=== PATIENT | female | born 1990 | race Caucasian/White ===

== ENCOUNTER 2018-05-31 13:03 | Emergency (ER) | payer SELFPAY ==
[2018-05-31 13:17] VITALS: BP 104/58; PULSE 58; RESP 16; TEMP 98.3; O2SAT 99
[2018-05-31] MEDS ORDERED: PROPARACAINE/FLUORESCEIN SOD 100 DROP/5 ML BOTTLE OD STA (13:46)
--- NOTE | 2018-05-31 14:11 | ED PDOC ---
HPI: Eye Injury/Pain Time Seen by Provider: 05/31/18 13:18 Chief Complaint (Nursing): Eye Problem Chief Complaint (Provider): Right Eye Problem History Per: Patient History/Exam Limitations: no limitations Onset/Duration Of Symptoms: Days (x2) Current Symptoms Are (Timing): Still Present Quality: Burning Wears Contact Lens?: Yes Associated Symptoms: Pain, Other (tearing). denies: FB Sensation, Discharge From Eye Additional Complaint(s): Patient is a 28 y/o female who presents to the ED for evaluation of right eye discomfort ongoing for the past two days. Patient reports her symptoms began after she took out her contacts, which she had in for a week. Patient admits to photophobia, increasing tearing, and redness to the affected eye. 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 Patient denies visual change, trauma to eye, foreign body sensation, eye mucous discharge, crusting, fever, URI, headache, dizziness, and vomiting. In addition, patient reports her last period was three weeks ago. No other complaints. PCP: None Provided Past Medical History Reviewed: Historical Data, Nursing Documentation, Vital Signs Vital Signs: Last Vital Signs Temp 98.3 F 05/31/18 13:15 Pulse 58 L 05/31/18 13:15 Resp 16 05/31/18 13:15 BP 104/58 L 05/31/18 13:15 Pulse Ox 99 05/31/18 13:15 - Medical History Other PMH: pelvis fracture as child; left elbow fracture - Surgical History Other surgeries: ORIF of left elbow - Family History Family History: States: No Known Family Hx - Home Medications Home Medications: Ambulatory Orders Medication Instructions Recorded Acetaminophen/Oxycodone Hydr 1 tab PO Q6 PRN #18 tab 03/03/14 [Percocet 325 mg-5 mg] Cyclobenzaprine HCl [Flexeril] 10 mg PO BID PRN #20 tab 03/03/14 RX: Tobramycin 0.3% [Tobrex 0.3% 1 drop OD Q6 #1 bottle 05/31/18 Ophth Chivo] - Allergies Allergies/Adverse Reactions: Allergies Allergy/AdvReac Type Severity Reaction Status Date / Time No Known Allergies Allergy Verified 05/31/18 13:14 Review of Systems ROS Statement: Except As Marked, All Systems Reviewed And Found Negative Constitutional: Negative for: Fever Eyes: Positive for: Pain (right eye discomfort; photophobia and increased tearing), Redness. Negative for: Vision Change, Other (eye mucous discharge and crusting) Gastrointestinal: Negative for: Vomiting Neurological: Negative for: Headache, Dizziness Physical Exam - Reviewed Nursing Documentation Reviewed: Yes Vital Signs Reviewed: Yes - Physical Exam Comments: GENERAL APPEARANCE: Patient is awake, alert, oriented x 3; uncomfortable appearing. HEENT: (-) facial swelling and erythema, (-) facial blisters (-) periorbital edema, erythema or tenderness. VISUAL ACUITIES: cannot be obtained because patient did not bring glasses to ED. LIDS & LASHES: Normal. (-) crusting (+) excessive tearing to right eye. PUPILS: Pupils are equal, round, and reactive. EOMI's: Intact and painless. CONJUNCTIVAE: (+) diffuse conjunctival injection of right eye. ANTERIOR CHAMBER: (-) foreign body, (-) hyphema. FLUORESCEIN: (+) 3 mm by 3 mm circular area of uptake overlying the pupil CHEST AND RESPIRATORY: (-) rales, (-) rhonchi, (-) wheezes; breath sounds equal bilaterally. Respirations even and nonlabored. HEART AND CARDIOVASCULAR: (-) irregularity - ECG O2 Sat by Pulse Oximetry: 99 (RA) Pulse Ox Interpretation: Normal Medical Decision Making Medical Decision Making: Time: 1330 Impression: Eye irritation; Conjunctivitis vs corneal ulcer vs uveitis Plan: Flucaine Eye Drops (1 drop OD) Nursing Communication - Visual acuity Re-evaluation Time: 1410 In light of fluorescein test, Tobramycin ophthalmic solution ordered. Consult with Opticianry Teacher placed due to high suspicion for corneal ulcer. Time: 1435 Case discussed with ophtho precision layout worker, Dr William. Dr William states to send patient to his office immediately for further evaluation. Patient made aware of consult with Dr William and is agreeable to plan. Patient demonstrates understanding of physical exam findings and need for immediate ophtho evaluation. Vitals stable. Lab/Diagnostic results d/w the patient in great detail. Diagnosis of corneal u lcer, right eye irritation d/w the patient. Based on history, exam and diagnostic results, plan will be for outpatient follow up with ophtho (Dr William) immediately upon discharge. Advised to take medication as prescribed. Return to the emergency room at any time for any new or worsening symptoms. Patient states she fully agrees with and understands discharge instructions. States that she agrees with the plan and disposition. Verbalized and repeated discharge instructions and plan. I have given the patient opportunity to ask any additional questions. Scribe Attestation: Documented by Kaushik Mccray, acting as a scribe for SILVESTRE Smith. Provider Scribe Attestation: All medical record entries made by the Scribe were at my direction and personally dictated by me. I have reviewed the chart and agree that the record accurately reflects my personal performance of the history, physical exam, medical decision making, and the department course for this patient. I have also personally directed, reviewed, and agree with the discharge instructions and disposition. Disposition - Clinical Impression Clinical Impression: Corneal ulcer of right eye, Eye infection - Patient ED Disposition Is Patient to be Admitted: No Discussed With .: Sebastian William Doctor Will See Patient In The: Office Counseled Patient/Family Regarding: Studies Performed, Diagnosis, Need For Followup, Rx Given - Disposition Referrals: Sebastian William MD [Staff Provider] - Disposition: Routine/Home Disposition Time: 14:30 Condition: SERIOUS Additional Instructions: FOLLOW UP WITH DR WILLIAM IMMEDIATELY UPON DISCHARGE. YOUR CONDITION MAY WORSEN AND CAN RESULT IN PERMANENT VISION LOSS. The emergency medical care you received today was directed at your acute symptoms. If you were prescribed any medication, please fill it and take as directed. It may take several days for your symptoms to resolve. Return to the Emergency Department if your symptoms worsen, do not improve, or if you have any other problems. Please contact your doctor in 2 days for re-evaluation and follow up / or call one of the physicians/clinics you have been referred to that are listed on the Patient Visit Information form that is included in your discharge packet. Bring any paperwork you were given at discharge with you along with any medications you are taking to your follow up visit. Our treatment cannot replace ongoing medical care by a primary care provider (PCP) outside of the emergency department. Prescriptions: RX: Tobramycin 0.3% [Tobrex 0.3% Ophth Soln] 1 drop OD Q6 #1 bottle Instructions: Corneal Ulcer Forms: [facility] ([place]) Print Language: NEPALI - POA Present On Arrival: None
[2018-05-31] MEDS ORDERED: Tobramycin 0.3% OPHT SOLN OD ONE (14:12)
== END 2018-05-31 15:15 | disposition home or self-care (01) ==
LOC: H.ER 13:03
DX: H16.001 Unspecified corneal ulcer, right eye (principal)